=== PATIENT | male | born 1975 | race Two or more races ===

== ENCOUNTER 2021-08-23 05:58 | Day surgery (SDC) | payer OTHER ==
[~2021-08-23 05:58] MED LIST: FIBER PO; MICARDIS HCT 81 EAC1 PO; NORVASC5 MG PO; OMEGA3 PO; [UNRECOGNIZED DRUG - OTHER]
[2021-08-23] MEDS ORDERED: PERCOCET 5-3251 EACH PO (08:52)
[2021-08-23] MEDS ORDERED: RECTICARE30 GM TOP (08:54)
== END 2021-08-23 11:40 | disposition home or self-care (01) ==
LOC: CIR.AMB 05:58
PROVIDERS: ATTEND Surgery
DX: K64.8 Other hemorrhoids (principal)